=== PATIENT | male | born 1990 | race Asian ===

== ENCOUNTER → 2017-09-16 | Day surgery (SDC) | payer MEDICAID, OTHER ==
[~2017-09-16] MED LIST: DIAZEPAM 5 MG TABLET ONE
--- NOTE | 2017-09-16 14:57 | RADIOLOGY REPORT (SQ) ---
EXAM DESCRIPTION: ARTHRO SHOULDER; FLUORO/NEEDLE PLACEMENT COMPLETED DATE/TIME: 09/16/2017 1:53 pm REASON FOR STUDY: L SHOULDER PAIN COMPARISON: None. FLUOROSCOPY TIME: 13 seconds 2 digital radiographic images saved to PACS. LIMITATIONS: None. PROCEDURE: Procedure, risks, benefits and alternatives explained to patient who then gave written co nsent. The posterior left shoulder was marked and a time out was called for correct procedure verific ation. Posterior entry site marked using fluoroscopic guidance. Shoulder prepped and draped using s terile technique. Local anesthesia achieved using 8 mL of 1% lidocaine injection. 22 gauge spinal n eedle introduced into the joint space under direct fluoroscopic visualization. Non-ionic contrast ins tilled to confirm intra-articular position. Dilute gadolinium solution then injected. Needle removed and entry site covered with sterile bandage. No immediate complications noted. TECHNIQUE: Digital images acquired during fluoroscopy and stored on PACS. Patient immediately take n to the MR suite for additional imaging. INJECTION LOCATION: Posterior left glenohumeral joint CONTRAST TYPE AND AMOUNT: 1 mL of Isovue-300 was injected to confirm intra-articular needle placement followed by 12 mL of dilute gadolinium for MR arthrogram IMPRESSION: SUCCESSFUL NEEDLE PLACEMENT AND INJECTION FOR LEFT SHOULDER MR ARTHROGRAM USING POSTERIO R APPROACH. COMMENT: Quality ID 145: Final reports for procedures using fluoroscopy that document radiation exp osure indices, or exposure time and number of fluorographic images (if radiation exposure indices are not available) TECHNICAL DOCUMENTATION: JOB ID: [id number] [employer]- All Rights Reserved Reading location - IP/workstation name: [email or web address]
--- NOTE | 2017-09-16 14:57 | RADIOLOGY REPORT (SQ) ---
EXAM DESCRIPTION: ARTHRO SHOULDER; FLUORO/NEEDLE PLACEMENT COMPLETED DATE/TIME: 09/16/2017 1:53 pm REASON FOR STUDY: L SHOULDER PAIN COMPARISON: None. FLUOROSCOPY TIME: 13 seconds 2 digital radiographic images saved to PACS. LIMITATIONS: None. PROCEDURE: Procedure, risks, benefits and alternatives explained to patient who then gave written co nsent. The posterior left shoulder was marked and a time out was called for correct procedure verific ation. Posterior entry site marked using fluoroscopic guidance. Shoulder prepped and draped using s terile technique. Local anesthesia achieved using 8 mL of 1% lidocaine injection. 22 gauge spinal n eedle introduced into the joint space under direct fluoroscopic visualization. Non-ionic contrast ins tilled to confirm intra-articular position. Dilute gadolinium solution then injected. Needle removed and entry site covered with sterile bandage. No immediate complications noted. TECHNIQUE: Digital images acquired during fluoroscopy and stored on PACS. Patient immediately take n to the MR suite for additional imaging. INJECTION LOCATION: Posterior left glenohumeral joint CONTRAST TYPE AND AMOUNT: 1 mL of Isovue-300 was injected to confirm intra-articular needle placement followed by 12 mL of dilute gadolinium for MR arthrogram IMPRESSION: SUCCESSFUL NEEDLE PLACEMENT AND INJECTION FOR LEFT SHOULDER MR ARTHROGRAM USING POSTERIO R APPROACH. COMMENT: Quality ID 145: Final reports for procedures using fluoroscopy that document radiation exp osure indices, or exposure time and number of fluorographic images (if radiation exposure indices are not available) TECHNICAL DOCUMENTATION: JOB ID: [id number] [employer]- All Rights Reserved Reading location - IP/workstation name: [email or web address]
--- NOTE | 2017-09-16 15:08 | RADIOLOGY REPORT (SQ) ---
EXAM DESCRIPTION: MRI LT UPPER JOINT WITH COMPLETED DATE/TIME: 09/16/2017 2:40 pm REASON FOR STUDY: L SHOULDER PAIN left shoulder stiffness decreased range of motion, clicking, grin ding and popping COMPARISON: Arthrogram earlier today TECHNIQUE: Left shoulder images acquired and stored on PACS. Multiplanar imaging to include fat sens itive sequences such as T1, water sensitive sequences such as FST2/STIR, cartilage sensitive sequence s such as FSPD/gradient-echo sequences. LIMITATIONS: None. FINDINGS: BONE MARROW AND CORTEX: No worrisome bone lesions or marrow replacement. No occult fractur es. JOINT OR BURSAL EFFUSION: No leakage of intra-articular contrast into the subacromial/ subdeltoid bur sa. GLENO-HUMERAL ARTICULATION: Normal articulation. No subluxation. No cystic change. No osteophytes or cartilage loss. ACROMION AND AC JOINT: Type 2 acromion. No down-sloping or distal spur. Sub-acromial space maintain ed. No significant AC joint arthropathy. ROTATOR CUFF AND INTERVAL: Minimal tendinopathy in the distal supra and infraspinatus tendons, at the insertion on the greater tuberosity best shown on coronal images 8-11. Subscapularis is intact. There is a small rotator interval tear. No rotator interval thickening to suggest adhesive capsulitis . LABRUM AND BICEPS LABRAL COMPLEX: Intra-articular long head biceps tendon is high in signal from te ndinopathy. Superior labrum is intact. No paralabral cysts. REMAINDER OF LABRUM AND IGHL : No gross tear or paralabral cyst formation. Labral evaluation is less than optimal without joint distention. No thickening of IGHL to suggest adhesive capsulitis. PERIARTICULAR AND ADJACENT SOFT TISSUES: No masses or abnormal nodes. OTHER: No other significant finding. IMPRESSION: Long head biceps tendinopathy with rotator interval tear. Minimal tendinopathy in the d istal supra and infraspinatus tendon TECHNICAL DOCUMENTATION: JOB ID: [id number] [employer]- All Rights Reserved Reading location - IP/workstation name: ON LICENSE OF [facility]
== END ==
LOC: RAD 12:48
PROVIDERS: ATTEND Clinical Nurse Specialist Adult Health
PROC: BP09ZZZ Plain Radiography of Left Shoulder (ICD-10-PCS; principal; 2017-09-16)
DX: M25.512 Pain in left shoulder (principal)
CPT/HCPCS: 73222; 73040; 77002; A9576

== ENCOUNTER → 2017-09-18 | Day surgery (SDC) | payer OTHER ==
--- NOTE | 2017-09-18 13:34 | RADIOLOGY REPORT (SQ) ---
EXAM DESCRIPTION: ARTHRO SHOULDER; FLUORO/NEEDLE PLACEMENT COMPLETED DATE/TIME: 09/18/2017 1:22 pm REASON FOR STUDY: R SHOULDER PAIN COMPARISON: None. FLUOROSCOPY TIME: 14 seconds 1 images saved to PACS. LIMITATIONS: None. PROCEDURE: Procedure, risks, benefits and alternatives explained to patient who then gave written co nsent. The posterior right shoulder was marked and a time out was called for correct procedure verifi cation. Posterior entry site marked using fluoroscopic guidance. Shoulder prepped and draped using sterile technique. Local anesthesia achieved using 6 mL of 1% lidocaine injection. 22 gauge spinal needle introduced into the joint space under direct fluoroscopic visualization. Non-ionic contrast in stilled to confirm intra-articular position. Dilute gadolinium solution then injected. Needle remove d and entry site covered with sterile bandage. No immediate complications noted. TECHNIQUE: Digital images acquired during fluoroscopy and stored on PACS. Patient immediately take n to the MR suite for additional imaging. INJECTION LOCATION: Posterior right glenohumeral joint CONTRAST TYPE AND AMOUNT: 1 mL of Isovue-300 was injected to confirm intra-articular needle placement followed by injection of 12 mL of Prohance/Saline mixture. IMPRESSION: SUCCESSFUL NEEDLE PLACEMENT AND INJECTION FOR RIGHT SHOULDER MR ARTHROGRAM USING POSTERI OR APPROACH. COMMENT: Quality ID 145: Final reports for procedures using fluoroscopy that document radiation exp osure indices, or exposure time and number of fluorographic images (if radiation exposure indices are not available) TECHNICAL DOCUMENTATION: JOB ID: [id number] [employer]- All Rights Reserved Reading location - IP/workstation name: [email or web address]
--- NOTE | 2017-09-18 13:34 | RADIOLOGY REPORT (SQ) ---
EXAM DESCRIPTION: ARTHRO SHOULDER; FLUORO/NEEDLE PLACEMENT COMPLETED DATE/TIME: 09/18/2017 1:22 pm REASON FOR STUDY: R SHOULDER PAIN COMPARISON: None. FLUOROSCOPY TIME: 14 seconds 1 images saved to PACS. LIMITATIONS: None. PROCEDURE: Procedure, risks, benefits and alternatives explained to patient who then gave written co nsent. The posterior right shoulder was marked and a time out was called for correct procedure verifi cation. Posterior entry site marked using fluoroscopic guidance. Shoulder prepped and draped using sterile technique. Local anesthesia achieved using 6 mL of 1% lidocaine injection. 22 gauge spinal needle introduced into the joint space under direct fluoroscopic visualization. Non-ionic contrast in stilled to confirm intra-articular position. Dilute gadolinium solution then injected. Needle remove d and entry site covered with sterile bandage. No immediate complications noted. TECHNIQUE: Digital images acquired during fluoroscopy and stored on PACS. Patient immediately take n to the MR suite for additional imaging. INJECTION LOCATION: Posterior right glenohumeral joint CONTRAST TYPE AND AMOUNT: 1 mL of Isovue-300 was injected to confirm intra-articular needle placement followed by injection of 12 mL of Prohance/Saline mixture. IMPRESSION: SUCCESSFUL NEEDLE PLACEMENT AND INJECTION FOR RIGHT SHOULDER MR ARTHROGRAM USING POSTERI OR APPROACH. COMMENT: Quality ID 145: Final reports for procedures using fluoroscopy that document radiation exp osure indices, or exposure time and number of fluorographic images (if radiation exposure indices are not available) TECHNICAL DOCUMENTATION: JOB ID: [id number] [employer]- All Rights Reserved Reading location - IP/workstation name: [email or web address]
--- NOTE | 2017-09-18 14:35 | RADIOLOGY REPORT (SQ) ---
EXAM DESCRIPTION: MRI RT UPPER JOINT WITH COMPLETED DATE/TIME: 09/18/2017 2:03 pm REASON FOR STUDY: R SHOULDER PAIN COMPARISON: None. TECHNIQUE: Right shoulder images acquired and stored on PACS. Oblique coronal, oblique sagittal, and axial imaging to include fat sensitive sequences as T1, water sensitive sequences as FST2/STIR, and contrast sensitive sequences as FST1. LIMITATIONS: None. FINDINGS: JOINT DISTENTION: Adequate. No loose bodies. BONE MARROW AND CORTEX: Normal. AC JOINT: No subacromial narrowing. No AC joint widening or bulky overgrowth. GLENOHUMERAL JOINT: No subluxation or dislocation. No focal chondral lesions. ROTATOR CUFF: Focal irregular perforation through the distal supraspinatus near insertion. Contrast extravasates into the subdeltoid bursa. LABRUM AND BICEPS LABRAL COMPLEX: Subchondral linear irregularity related to previous SLAP repair. O verlying this area, slightly irregular contrast undercuts the labrum, worrisome for subtle recurrent type 2 tear the biceps tendon is intact. INFERIOR LABRAL COMPLEX: Intact without tear. ADJACENT SOFT TISSUES: No regional mass or axillary adenopathy. OTHER: No other significant finding. IMPRESSION: 1. Focal slightly irregular perforation of the distal supraspinatus allowing contrast ex travasation outside the confines of the joint. A significant gap in the cuff is not otherwise demons trated. 2. Status post previous superior labral repair. Very focal irregular undercutting of the an chor here suggests recurrent tear. TECHNICAL DOCUMENTATION: JOB ID: [id number] [employer]- All Rights Reserved Reading location - IP/workstation name: [email or web address]
== END ==
LOC: RAD 12:44
PROVIDERS: ATTEND Clinical Nurse Specialist Adult Health
PROC: BP08ZZZ Plain Radiography of Right Shoulder (ICD-10-PCS; principal; 2017-09-18)
DX: M25.511 Pain in right shoulder (principal)
CPT/HCPCS: 73222; 73040; 77002; A9576

== ENCOUNTER 2017-09-20 22:53 | Emergency (ER) | payer OTHER ==
[2017-09-20] MEDS ORDERED: KETOROLAC TROMETHAMINE INJ/PF 30 MG/1 ML SDV IM ONE (23:42)
[2017-09-20] MEDS ORDERED: HYDROMORPHONE HCL INJ/PF 2 MG/ML AMPULE IM ONE (23:42)
--- NOTE | 2017-09-20 23:50 | ER Document Report ---
ED General - General Chief Complaint: Back Pain Stated Complaint: BACK PAIN Time Seen by Provider: 09/20/17 23:34 Notes: Patient is a 26-year-old male who presents with complaint of chronic back pain. Patient says he has a history of pain in his back from his . Is now retired . He says whenever he gets the pain usually shoots up and down the spine. He has some tingling sensation into his feet and legs. Patient says he was mowing the yard yesterday and now has noticed the pain into his back. Says it has become more stiff and more painful today. No loss of bowel control. No urinary retention. Patient is able to walk back and forth to the bathroom without any difficulty. No other complaints at this time. No recent fevers. No recent infections. Patient says he has not had an MRI of his back since he was in the several years ago. TRAVEL OUTSIDE OF THE [place] IN LAST 30 DAYS: No - Related Data Allergies/Adverse Reactions: No Known Allergies Allergy (Verified 09/21/17 00:57) Past Medical History - Social History Smoking Status: Current Every Day Smoker Chew tobacco use (# tins/day): No Frequency of alcohol use: Occasional Drug Abuse: None Family History: Reviewed & Not Pertinent Patient has suicidal ideation: No Patient has homicidal ideation: No Neurological Medical History: Reports: Hx Migraine Renal/ Medical History: Denies: Hx Peritoneal Dialysis - Immunizations Immunizations up to date: Yes Hx Diphtheria, Pertussis, Tetanus Vaccination: Yes Review of Systems - Review of Systems Notes: My Normal Review Basic REVIEW OF SYSTEMS: CONSTITUTIONAL : Denies fever, chills, or sweats. Denies recent illness. EENT: Denies eye, ear, throat, or mouth pain or symptoms. Denies nasal or sinus congestion. RESPIRATORY: Denies cough, cold, or chest congestion. Denies shortness of breath, difficulty breathing, or wheezing. GASTROINTESTINAL: Denies abdominal pain. Denies nausea, vomiting, or diarrhea. MUSCULOSKELETAL: Back pain SKIN: Denies rash or skin lesions. NEUROLOGICAL: Denies altered mental status or loss of consciousness. Denies headache. Denies weakness or paralysis or loss of use of either side. Denies problems with gait or speech. mild tingling into both feet. ALL OTHER SYSTEMS REVIEWED AND NEGATIVE. Physical Exam - Vital signs Vitals: Temp Pulse Resp BP Pulse Ox 97.8 F 61 16 132/97 H 98 09/20/17 23:04 09/20/17 23:04 09/20/17 23:04 09/20/17 23:04 09/20/17 23:04 - Notes Notes: General Appearance: Well nourished, alert, cooperative, no acute distress, moderate obvious discomfort. Vitals: reviewed, See vital signs table. Eyes: PERRL, EOMI, Conjuctiva clear Back: Some reproducible pain to palpation along the lumbar and thoracic spine and midline. Bilateral paraspinal musculature tenderness. Extremities: strength 5/5 in all extremities, good pulses in all extremities, no swelling or tenderness in the extremities, no edema. Skin: warm, dry, appropriate color, no rash Neuro: speech clear, oriented x 3, normal affect, responds appropriately to questions. Patient has good strength with plantar dorsiflexion against resistance. Patellar reflexes are 2 out of 4 and equal bilaterally. Good distal sensation into the distal lower extremities. Patient is able stand and walk without any foot drop and without any significant difficulty. Course - Re-evaluation Re-evalutation: 09/21/17 01:31 Patient presents with back pain that worsened while he was mowing the yard. His pain does not seem to be really improved with anything I give him here yet he does not seem to be in a lot of pain on exam. Is able stand and walk without any difficulty. His bowel function is been completely normal. He is able to urinate and give urine samples here without any difficulty. He denies any urinary retention. He admits to some mild tingling in his legs however he has very good strength with plantar dorsiflexion of his feet and he has normal patellar reflexes. Has no signs of cauda equina syndrome at this time. I explained all this to the patient in depth. Patient himself admits he has a history of some chronic back pain but admits that this is a bit different that it goes up his entire spine worse his previous pain was mainly just in his lower back. At this time he does not show any signs of spinal cord impingement requiring emergent surgical intervention and therefore I do not feel a need to transfer him for an MRI. I did talk to patient length about the signs and symptoms that would require an emergent MRI and surgical intervention which include loss of bowel control, urinary retention, leg weakness, leg numbness, or difficulty relating. Patient is understanding of this and agrees to return to the ER immediately if he has any the signs or symptoms. He agrees to follow- up with his doctor on Saturday and be reevaluated for potential outpatient MRI. He is not an IV drug abuser and he has no recent fevers or any recent symptoms that would cause concern for infection. Patient agrees with plan will be discharged home. Dictation of this chart was performed using voice recognition software; therefore, there may be some unintended grammatical errors. - Vital Signs Vital signs: Temp Pulse Resp BP Pulse Ox 97.8 F 61 16 132/97 H 98 09/20/17 23:04 09/20/17 23:04 09/20/17 23:04 09/20/17 23:04 09/20/17 23:04 Discharge - Discharge Clinical Impression: Back pain Qualifiers: Back pain location: back pain in unspecified location Chronicity: acute Back pain laterality: midline Qualified Code(s): M54.9 - Dorsalgia, unspecified Condition: Good Disposition: HOME, SELF-CARE Instructions: Oral Narcotic Medication ([facility]) Additional Instructions: Please take the medications as prescribed. Please continue to take the meds prescribed by your doctor. Please return to the ER immediately if you have worsening parra, fevers, leg weakness, leg numbness, loss of bowel function, difficulty urinating, or if you feel that you are worsening in any way. Please follow up with your doctor on Saturday. If you continue to have symptoms you may require an outpatient MRI of your back. Please take the [place] more at night to help manage the pain so you can get some rest. Prescriptions: Baclofen [Baclofen 20 Mg Tablet] 20 mg PO BID PRN #15 tablet PRN Reason: Pain Scale Of 4
[2017-09-21] MEDS ORDERED: BACLOFEN 20 MG TABLET PO ONE (00:29)
[2017-09-21] MEDS ORDERED: HYDROCODONE/ACETAMINOPHEN 5-325 MG (6 TAB/ER DISP) PO PRN (01:28)
[2017-09-21 01:39] VITALS: BP 122/73
== END 2017-09-21 01:38 | disposition home or self-care (01) ==
LOC: ER 22:53
DX: G89.29 Other chronic pain (principal); M54.9 Dorsalgia, unspecified; R20.2 Paresthesia of skin; F17.200 Nicotine dependence, unspecified, uncomplicated
CPT/HCPCS: 99283; 96372; J1885; J1170; J3490

== ENCOUNTER 2017-10-13 16:47 | Emergency (ER) | payer OTHER ==
[2017-10-13] MEDS ORDERED: PROCHLORPERAZINE MALEATE 10 MG TABLET PO ONE (17:13)
[2017-10-13] MEDS ORDERED: NAPROXEN 250 MG TABLET PO ONE (17:13)
[2017-10-13] MEDS ORDERED: DIPHENHYDRAMINE HCL 25 MG CAPSULE PO ONE (17:13)
--- NOTE | 2017-10-13 17:14 | ER Document Report ---
ED Medical Screen (RME) - General Chief Complaint: Headache >24 hrs old Stated Complaint: HEADACHE Time Seen by Provider: 10/13/17 17:06 Notes: 26-year-old male patient complaining migraine headache for couple of days. He gets headaches off and on. He normally takes butalbital but it is not helping. His occipital headache with light sensitivity and nausea without vomiting. I have greeted and performed a rapid initial assessment of this patient. A comprehensive ED assessment and evaluation of the patient, analysis of test results and completion of the medical decision making process will be conducted by additional ED providers. TRAVEL OUTSIDE OF THE [place] IN LAST 30 DAYS: No - Related Data Allergies/Adverse Reactions: No Known Allergies Allergy (Verified 10/13/17 16:51) Home Medications: ambien, fish oil, mag ox, protonix, vit d3, voltaren, zoloft, acet/butal. Past Medical History - Social History Chew tobacco use (# tins/day): No Frequency of alcohol use: Occasional Drug Abuse: None Neurological Medical History: Reports: Hx Migraine Renal/ Medical History: Denies: Hx Peritoneal Dialysis - Immunizations Immunizations up to date: Yes Hx Diphtheria, Pertussis, Tetanus Vaccination: Yes Physical Exam - Vital signs Vitals: Temp Pulse Resp BP Pulse Ox 98.1 F 92 18 121/84 97 10/13/17 16:57 10/13/17 16:57 10/13/17 16:57 10/13/17 16:57 10/13/17 16:57 Course - Vital Signs Vital signs: Temp Pulse Resp BP Pulse Ox 98.1 F 92 18 121/84 97 10/13/17 16:57 10/13/17 16:57 10/13/17 16:57 10/13/17 16:57 10/13/17 16:57
[2017-10-13] MEDS ORDERED: HYDROCODONE/ACETAMINOPHEN 5-325 MG (6 TAB/ER DISP) PO PRN (18:38)
--- NOTE | 2017-10-13 18:38 | ER Document Report ---
ED Headache - General Chief Complaint: Headache >24 hrs old Stated Complaint: HEADACHE Time Seen by Provider: 10/13/17 17:06 Mode of Arrival: Ambulatory Information source: Patient, [facility] Records Notes: This 26-year-old male patient comes emergency room complaining of migraine headaches for the last couple of days. He does get headaches off and on. He normally takes Fioricet but it is not helping. He describes headache on the left back of his head and left temporal area of the head. There is light sensitivity and nausea without vomiting. [facility] his [facility] headaches. He takes baclofen for his chronic back pain. TRAVEL OUTSIDE OF THE [place] IN LAST 30 DAYS: No - Related Data Allergies/Adverse Reactions: No Known Allergies Allergy (Verified 10/13/17 16:51) Home Medications: ambien, fish oil, mag ox, protonix, vit d3, voltaren, zoloft, acet/butal. Past Medical History - General Information source: Patient, [facility] Records - Social History Smoking Status: Former Smoker Cigarette use (# per day): No Chew tobacco use (# tins/day): No Frequency of alcohol use: Occasional Drug Abuse: None Occupation: Medically retired from the Lives with: Spouse/Significant other Family History: Reviewed & Not Pertinent Patient has suicidal ideation: No Patient has homicidal ideation: No Neurological Medical History: Reports: Hx Migraine Surgical Hx: Negative - Immunizations Immunizations up to date: Yes Hx Diphtheria, Pertussis, Tetanus Vaccination: Yes Review of Systems - Review of Systems Constitutional: No symptoms reported EENT: No symptoms reported Cardiovascular: No symptoms reported Respiratory: No symptoms reported Gastrointestinal: No symptoms reported Genitourinary: No symptoms reported Musculoskeletal: Back pain Skin: No symptoms reported Hematologic/Lymphatic: No symptoms reported Neurological/Psychological: Headaches Physical Exam - Vital signs Vitals: Temp Pulse Resp BP Pulse Ox 98.1 F 92 18 121/84 97 10/13/17 16:57 10/13/17 16:57 10/13/17 16:57 10/13/17 16:57 10/13/17 16:57 Interpretation: Normal - General General appearance: Appears well, Alert In distress: None - HEENT Head: Normocephalic, Atraumatic, Tenderness - He is very tender to palpate the left temporal muscles and the left posterior cervical neck muscles Eyes: Normal Pupils: PERRL Neck: Supple, Other - Very tender to palpate the left posterior cervical neck muscles - Respiratory Respiratory status: No respiratory distress - Cardiovascular Rhythm: Regular - Abdominal Inspection: Normal - Back Back: Tender - Extremities General upper extremity: Normal inspection General lower extremity: Normal inspection - Neurological Neuro grossly intact: Yes - Psychological Associated symptoms: Normal affect, Normal mood - Skin Skin Temperature: Warm Skin Moisture: Dry Skin Color: Normal Course - Re-evaluation Re-evalutation: 10/13/17 18:58 Patient was given Naprosyn 500 mg, Compazine 10 mg, Benadryl 25 mg. He was reevaluated 1 hour later and states there is absolutely no difference in his headache. Examination done at that point showed this to be clearly a muscle tension type headache. All of this was explained to the patient why the exquisitely tender muscles palpated outside the skull could not be related to a migraine headache, as that is a vascular headache involving blood vessels on the surface of the brain. - Vital Signs Vital signs: Temp Pulse Resp BP Pulse Ox 97.5 F 87 16 119/78 98 10/13/17 18:50 10/13/17 18:50 10/13/17 18:50 10/13/17 18:50 10/13/17 18:50 Discharge - Discharge Clinical Impression: Muscle tension headache Condition: Stable Disposition: HOME, SELF-CARE Additional Instructions: Tension Headache: Your problem has been diagnosed as muscle tension headache. This very common type of headache occurs because of tightness in the muscles of the head and neck. The cause may be neck or jaw joint problems, but most commonly the cause is emotional stress. The headache may last hours or days. The treatment of uncomplicated tension headaches is rest and pain medication. Often, the newer antiinflammatory pain medications are prescribed, as these also decrease the irritability of the painful tissues. Muscle relaxers , cold packs, or warm packs are sometimes helpful. Anti-anxiety medication or narcotics are sometimes needed temporarily, but are best avoided in the long run. Your doctor has evaluated your headache problem, and finds no evidence of a serious health problem as a cause for the headache. If your headache becomes more severe, or if new symptoms develop (such as fever, stiff neck, vomiting, or decreasing alertness) you should be re-examined by the physician. Take medications as dispensed this evening for your headache. Continue your regular medications. Try ice packs and/or moist heat to the painful muscles on your temporal scalp and posterior neck regions. Rest and a cool quiet area. Follow-up with your doctor if not improving. RETURN TO THE EMERGENCY ROOM IF ANY NEW OR WORSENING SYMPTOMS.
[2017-10-13 18:52] VITALS: BP 119/78
== END 2017-10-13 18:52 | disposition home or self-care (01) ==
LOC: ER 16:47
DX: G44.209 Tension-type headache, unspecified, not intractable (principal); H53.149 Visual discomfort, unspecified; R11.0 Nausea; M54.9 Dorsalgia, unspecified; G89.29 Other chronic pain; Z79.899 Other long term (current) drug therapy
CPT/HCPCS: 99283; S0183

== ENCOUNTER 2017-11-23 22:52 | Emergency (ER) | payer OTHER, MEDICAID ==
[2017-11-24] MEDS ORDERED: NORMAL SALINE 1000 ML 1,000 ML IV ONE (00:43)
[2017-11-24] MEDS ORDERED: METOCLOPRAMIDE HCL INJ/PF 10 MG/2 ML SDV IV ONE (00:43)
[2017-11-24] MEDS ORDERED: DIPHENHYDRAMINE HCL 50 MG/ML VIAL IV ONE (01:18)
[2017-11-24] MEDS ORDERED: DEXAMETHASONE SOD PHOS INJ 10 MG/1 ML VIAL IV ONE (01:18)
--- NOTE | 2017-11-24 01:19 | ER Document Report ---
ED General - General Chief Complaint: Nausea/Vomiting Stated Complaint: VOMITING Time Seen by Provider: 11/24/17 00:43 Notes: The patient is a 26-year-old male with a history of migraine headaches who presents with 1 of his typical migraines with associated nausea and vomiting. The patient reports that approximately 3 or 4 hours prior to arrival he began to develop a dull, throbbing, bitemporal headache. She notes associated photophobia and phonophobia as well as nausea and vomiting. He reports that this feels very similar to prior migraine headaches that he has had in the past. He notes that the pain has been progressively worsening since onset. He did take sumatriptan at home without any improvement. He states that shortly after eating a [employer] sandwich he did develop diffuse urticarial lesions but did not eat anything new or different than he usually does. He denies any shortness of breath, difficulty swallowing, or syncope. No history of prior allergic reactions. He has not seen his primary doctor about the above complaints. TRAVEL OUTSIDE OF THE [place] IN LAST 30 DAYS: No - Related Data Allergies/Adverse Reactions: No Known Allergies Allergy (Verified 10/13/17 16:51) Past Medical History - General Information source: Patient - Social History Smoking Status: Never Smoker Frequency of alcohol use: None Drug Abuse: None Lives with: Spouse/Significant other Family History: Reviewed & Not Pertinent Neurological Medical History: Reports: Hx Migraine Renal/ Medical History: Denies: Hx Peritoneal Dialysis - Immunizations Immunizations up to date: Yes Hx Diphtheria, Pertussis, Tetanus Vaccination: Yes Review of Systems - Review of Systems Notes: Constitutional: Negative for fever. HENT: Negative for sore throat. Eyes: Negative for visual changes. Cardiovascular: Negative for chest pain. Respiratory: Negative for shortness of breath. Gastrointestinal: Positive for nausea and vomiting Genitourinary: Negative for dysuria. Musculoskeletal: Negative for back pain. Skin: Positive for urticaria Neurological: Positive for headache 10 point ROS negative except as marked above and in HPI. Physical Exam - Vital signs Vitals: Temp Pulse Resp BP Pulse Ox 98.1 F 84 16 117/84 95 11/23/17 23:23 11/23/17 23:23 11/23/17 23:23 11/23/17 23:23 11/23/17 23:23 Interpretation: Normal Notes: PHYSICAL EXAMINATION: GENERAL: Appears uncomfortable but no acute distress HEAD: Atraumatic, normocephalic. EYES: Pupils equal round and reactive to light, extraocular movements intact, sclera anicteric, conjunctiva are normal. ENT: nares patent, oropharynx clear without exudates. Moist mucous membranes. NECK: Normal range of motion, supple without lymphadenopathy LUNGS: Breath sounds clear to auscultation bilaterally and equal. No wheezes rales or rhonchi. HEART: Regular rate and rhythm without murmurs ABDOMEN: Soft, nontender, normoactive bowel sounds. No guarding, no rebound. No masses appreciated. EXTREMITIES: Normal range of motion, no pitting or edema. No cyanosis. NEUROLOGICAL: Face symmetric. Tongue protrudes midline. Extraocular motions intact. Pupils are 2 mm and equally reactive. Normal speech, normal gait. 5 out of 5 strength in both the distal and proximal upper and lower extremities bilaterally. Sensation is grossly intact throughout. Finger to nose testing normal. Pronator drift normal. PSYCH: Normal mood, normal affect. SKIN: Warm, Dry, normal turgor, scattered urticarial lesions over the chest, abdomen, bilateral upper extremities and back Course - Re-evaluation Re-evalutation: 11/24/17 01:18 Presentation of a headache that appears to be most consistent with tension versus migrainous type headache. Headache was not maximal in onset, patient has no focal neurologic deficits, no nuchal rigidity, vital signs within normal limits, no papilledema, and patient is overall well in appearance. Based on clinical history and examination I do not suspect an acute subarachnoid hemorrhage, dural venous sinus thrombosis, acute meningitis, or intercranial mass. Given my low clinical suspicion for any acute life-threatening etiology, I do not feel advanced neuro imaging or laboratory testing is indicated at this time. Patient did also develop diffuse urticarial lesions after eating a sub-. It appears that he is having an allergic reaction to something that was contained in the sandwich. He will receive dexamethasone and Benadryl in addition to metoclopramide for his headache as well as the hives. 11/24/17 02:29 Patient has had significant improvement of his headache, no longer having nausea or vomiting. He has tolerated oral intake. Urticaria has improved. At this time will discharge with return precautions and follow-up recommendations. Verbal discharge instructions given a the bedside and opportunity for questions given. Medication warnings reviewed. Patient is in agreement with this plan and has verbalized understanding of return precautions and the need for primary care follow-up in the next 24-72 hours. - Vital Signs Vital signs: Temp Pulse Resp BP Pulse Ox 98.1 F 84 16 117/84 95 11/23/17 23:23 11/23/17 23:23 11/23/17 23:23 11/23/17 23:23 11/23/17 23:23 - Laboratory Result Diagrams: 11/24/17 01:09 11/24/17 01:09 Laboratory results interpreted by me: 11/24/17 01:09 WBC 14.3 H RBC 5.74 H Lymphocytes % 12.9 L Absolute Neutrophils 11.0 H Discharge - Discharge Clinical Impression: Migraine headache Qualifiers: Migraine type: unspecified Status migrainosus presence: with status migrainosus Intractability: not intractable Qualified Code(s): G43.901 - Migraine, unspecified, not intractable, with status migrainosus Vomiting Qualifiers: Vomiting type: unspecified Vomiting Intractability: non-intractable Nausea presence: with nausea Qualified Code(s): R11.2 - Nausea with vomiting, unspecified Allergic reaction Qualifiers: Encounter type: initial encounter Qualified Code(s): T78.40XA - Allergy, unspecified, initial encounter Condition: Good Disposition: HOME, SELF-CARE Additional Instructions: You were seen today for a migraine headache. Please follow-up with your primary care doctor regarding today's ED visit. Return to emergency department immediately if you develop a headache that gets to its maximum severity within 20 minutes of onset, you pass out, you develop weakness, numbness, changes in your vision, become unable to keep any fluids down for more than 12 hours, or develop a fever greater than 100.4 degrees Fahrenheit. You were seen today for hives. This can be either allergic, autoimmune, or environmental in origin. You can continue to take cetirizine 10mg up to 3 times daily as needed for itching. IF YOU DEVELOP DIFFICULTY BREATHING, SPREADING OF HIVES, VOMITING, LIGHTHEADEDNESS, IMMEDIATELY AND CALL 911. Please follow-up with your primary care physician in the next 1-2 days.
[2017-11-24 01:30] LABS: ABSOLUTE BASOPHILS # (AUTO) 0.1 10^3/uL (0.0-0.2); ABSOLUTE EOSINOPHILS # (AUTO) 0.2 10^3/uL (0.0-0.6); ABSOLUTE LYMPHOCYTES (AUTO) 1.8 10^3/uL (0.5-4.7); ABSOLUTE MONOCYTES (AUTO) 1.3 10^3/uL (0.1-1.4); BASOPHILS % (AUTO) 0.4 % (0-2); EOSINOPHILS % (AUTO) 1.2 % (0-6); HEMATOCRIT 47.8 % (37.9-51.0); HEMOGLOBIN 16.3 g/dL (13.5-17.0); LYMPHOCYTES % (AUTO) 12.9 % (13-45); MEAN CORPUSCULAR HEMOGLOBIN 28.4 pg (27.0-33.4); MEAN CORPUSCULAR HGB CONC 34.1 g/dL (32.0-36.0); MEAN CORPUSCULAR VOLUME 83 fl (80-97); MONOCYTES % (AUTO) 8.9 % (3-13); PLATELET COUNT 261 10^3/uL (150-450); RED BLOOD COUNT 5.74 10^6/uL (4.35-5.55); RED CELL DISTRIBUTION WIDTH 12.4 % (11.5-14.0); SEGMENTED NEUTROPHILS % (AUTO) 76.6 % (42-78); TOTAL CELLS COUNTED % (AUTO) 100 %; WHITE BLOOD COUNT 14.3 10^3/uL (4.0-10.5)
[2017-11-24] MEDS ORDERED: HALOPERIDOL LACTATE INJ 5 MG/1 ML VIAL IV ONE (01:51)
[2017-11-24 04:01] VITALS: BP 117/73
== END 2017-11-24 03:09 | disposition home or self-care (01) ==
LOC: ER 22:52
DX: G43.901 Migraine, unspecified, not intractable, with status migrainosus (principal); R11.2 Nausea with vomiting, unspecified; H53.149 Visual discomfort, unspecified; L50.0 Allergic urticaria
CPT/HCPCS: 99284; 96361; 96374; 96375; 36415; 85025; J1200; J1630; J2765; J7030; J1100

== ENCOUNTER 2017-12-12 05:17 | Day surgery (SDC) | payer OTHER, MEDICAID ==
[2017-12-05 10:24] LABS: APPEARANCE,URINE CLEAR; BILIRUBIN,URINE NEGATIVE (NEGATIVE); COLOR,URINE YELLOW; GLUCOSE, URINE NEGATIVE (NEGATIVE); KETONES,URINE NEGATIVE (NEGATIVE); LEUKOCYTE ESTERASE,URINE NEGATIVE (NEGATIVE); NITRITE,URINE NEGATIVE (NEGATIVE); PROTEIN,URINE NEGATIVE (NEGATIVE); URINE SPECIFIC GRAVITY 1.016; UROBILINOGEN,URINE NEGATIVE mg/dL (<2.0)
[2017-12-05 10:25] LABS: HEMATOCRIT 45.5 % (37.9-51.0); MEAN CORPUSCULAR HEMOGLOBIN 29.3 pg (27.0-33.4); MEAN CORPUSCULAR HGB CONC 35.2 g/dL (32.0-36.0); MEAN CORPUSCULAR VOLUME 83 fl (80-97); PLATELET COUNT 234 10^3/uL (150-450); RED BLOOD COUNT 5.47 10^6/uL (4.35-5.55); RED CELL DISTRIBUTION WIDTH 12.7 % (11.5-14.0); WHITE BLOOD COUNT 4.9 10^3/uL (4.0-10.5)
[2017-12-05 10:44] LABS: ANION GAP 12 (5-19); BLOOD UREA NITROGEN 13 mg/dL (7-20); CALCIUM 9.7 mg/dL (8.4-10.2); CARBON DIOXIDE 29 mmol/L (22-30); CHLORIDE 104 mmol/L (98-107); GLUCOSE 103 mg/dL (75-110); POTASSIUM 4.7 mmol/L (3.6-5.0); SODIUM 144.5 mmol/L (137-145)
[~2017-12-12 05:17] MED LIST changes: +CEFAZOLIN 2 GM/D5W RTU 2 GM/50 ML RTUPB IV PRN; -DIAZEPAM 5 MG TABLET ONE; +LACTATED RINGERS 1000 ML IV PRN; +LIDOCAINE 0.5% INJ-PF (5 MG/ML) 50 ML SDV SUBCUT PRN
[2017-12-12] MEDS ORDERED: EPINEPHRINE INJ/PF 1 MG/1 ML AMPULE ONE (07:12)
[2017-12-12] MEDS ORDERED: BUPIVACAINE HCL 0.25 % INJ/PF (2.5 MG/1 ML) 30 ML VIAL ONE (07:12)
[2017-12-12] MEDS ORDERED: EPHEDRINE SULFATE INJ 50 MG/1 ML AMPULE ONE (07:17)
[2017-12-12] MEDS ORDERED: FENTANYL CITRATE INJ/PF 250 MCG/5 ML AMPULE ONE (07:17)
[2017-12-12] MEDS ORDERED: MIDAZOLAM 2 MG/2 ML INJ ONE (07:17)
[2017-12-12] MEDS ORDERED: ACETAMINOPHEN 1,000 MG/100 ML RTUPB IV ONE (07:18)
[2017-12-12] MEDS ORDERED: PROPOFOL INJ 200 MG/20 ML VIAL IV ONE (07:18)
[2017-12-12] MEDS ORDERED: HYDROMORPHONE HCL INJ/PF 2 MG/ML AMPULE ONE (07:18)
[2017-12-12] MEDS ORDERED: DIPHENHYDRAMINE HCL 50 MG/ML VIAL IV PRN (08:13)
[2017-12-12] MEDS ORDERED: FENTANYL CITRATE INJ/PF 100 MCG/2 ML AMPUL IV PRN ×3 (08:13)
[2017-12-12] MEDS ORDERED: PROMETHAZINE HCL INJ 25 MG/1 ML VIAL IV PRN ×2 (08:13)
[2017-12-12] MEDS ORDERED: OXYCODONE-ACETAMINOPHEN 5-325 MG TABLET PO PRN ×4 (08:13→09:37)
[2017-12-12] MEDS ORDERED: MORPHINE SULFATE 10 MG/ML INJ IV PRN (08:13)
[2017-12-12] MEDS ORDERED: MEPERIDINE HCL/PF INJ 25 MG/1 ML DISP.SYRIN IV PRN (08:13)
[2017-12-12] MEDS: MEPERIDINE HCL/PF INJ 25 MG/1 ML DISP.SYRIN ONE ×2 (09:11→09:16)
--- NOTE | 2017-12-12 09:21 | Operative Report ---
Operative Report DATE OF SURGERY: 12/12/17 PREOPERATIVE DIAGNOSIS: Right shoulder failed SLAP repair and questionable rotator cuff tear POSTOPERATIVE DIAGNOSIS: Right shoulder failed repair with intact rotator cuff. OPERATION: Right shoulder arthroscopic debridement labrum and subpectoralis biceps tenodesis SURGEON: MATA LUGO ANESTHESIA: GA TISSUE REMOVED OR ALTERED: Portion of the long head of the biceps removed COMPLICATIONS: None ESTIMATED BLOOD LOSS: 20 mL INTRAOPERATIVE FINDINGS: As above PROCEDURE: Patient received 1 g of IV Ancef. Patient then was taken to the operating room where she was induced and intubated in supine position. Patient then was secured in the beachchair position where the right shoulder was prepped and draped in a normal surgical fashion. Timeout done identifying the right shoulder as the correct site. Spinal needle was used to insert into the glenohumeral joint and I proceeded to distend the capsule with sterile saline solution. 11 blade was used to establish my posterior portal and I introduced the cannula into the glenohumeral joint. Once I got return of fluid I confirm proper placement so I inserted the camera. Under direct visualization I placed a spinal needle marked my anterior portal and used an 11 blade to establish a. I placed a purple cannula and then through the cannula was able to probe and proceed with my diagnostic scope which show pristine glenohumeral joint cartilage and intact labrum anterior, inferior and posterior. As suspected patient had a failed SLAP repair with a new tear. There was a suture that was also loose I was able to removed. To my attention to the footprint of the rotator cuff which showed to be intact with no partial tearing. At this point through the anterior portal I use arthroscopic scissors to do a tenotomy of the long head of the biceps at the attachment of the glenoid superiorly. I proceeded then to remove fluid from the shoulder joint and removed the instruments. A 1 inch incision was done just medial to the axillary fold dissection was done with Metzenbaum scissors and hemostasis was obtained with the Bovie. Able to then cut the fascia overlying the biceps and then hooked the long head of biceps with a 90 clamp. Was able then to use a fiber loop and suture 2 cm from the muscular tendinous junction and cut the remaining tendon. I used 2 Homans to reflect tissue on the side of the humerus. I used a 4 mm spade tip guidepin then to do my proximal cortex drilling into the intramedullary canal of the humerus. I fed the 2 ends of the fiber wire into the biceps tenodesis button as recommended by the manufacturing company. Pulled out the guidepin and then proceeded to insert the button into the intramedullary canal. I was able to successfully flipped the button and after releasing securing the biceps. I used a free needle the comes in the care and pass one of the FiberWire ends through the biceps one more time to further secure it. Once I since the biceps onto the humeral cortex I then proceeded to go several half hitch knots for added fixation. Instruments were removed and used bulb irrigation to wash the tissue. I proceeded to approximate the tissue with 2-0 Vicryl and close the skin with 3-0 nylon. The 2 of the portal sites were closed with 3-0 nylon as well. I placed Xeroform over the incisions and covered it with 4 x 4 dressing and ABD pads. Secured the dressing with Medipore tape. Patient's arm was placed in the sling and the patient then was placed in supine position extubated and sent to PACU in stable condition.
--- NOTE | 2017-12-12 09:26 | Discharge Summary ---
Discharge Summary (SDC) - Discharge Final Diagnosis: Right shoulder arthroscopic debridement and subpectoralis biceps tenodesis Date of Surgery: 12/12/17 Discharge Date: 12/12/17 Condition: Good Treatment or Instructions: Patient is instructed to follow up in 10-14 days. Patient instructed to remove dressing in 4 days then can shower and apply Band- Aids as needed. Patient to wear sling for comfort but okay to remove for shower and pendulum exercises. Pendulum exercises are instructed to be done 3 times a day ideally with breakfast, lunch, dinners and showers. Patient instructed to call if there is any signs of redness or drainage fevers or chills. Prescriptions: Oxycodone HCl/Acetaminophen [Percocet 5-325 mg Tablet] 1 - 2 tab PO ASDIR PRN # 30 tablet PRN Reason: Referrals: KURTIS AVENDAÑO, L[facility] OUT HELPER [Primary Care Provider] - Respiratory Treatments at Home: Deep Breathing/Coughing Discharge Activity: No Driving, No Lifting/Push/Pulling, Slowly Increase Activity, Walk Frequently Home Care Assistance: None Needed Report the Following to Your Physician Immediately: Shortness of Breath, Vomiting, Increase in Pain, Fever over 101 Degrees, Unusual Bleeding, Redness, Swelling, Warmth, Drainage-Yellow, Drainage-Morales, Drainage-Green, Drainage-Foul Smelling
[2017-12-12 11:55] VITALS: BP 136/96
[2017-12-12] MEDS ORDERED: DEXAMETHASONE SOD PHOSPHATE INJ 4 MG/1 ML VIAL ONE (15:59)
[2017-12-12] MEDS ORDERED: SUCCINYLCHOLINE CHLORIDE INJ 200 MG/10 ML VIAL ONE (15:59)
[2017-12-12] MEDS ORDERED: METOCLOPRAMIDE HCL INJ/PF 10 MG/2 ML SDV ONE (15:59)
== END 2017-12-12 11:30 | disposition home or self-care (01) ==
LOC: OROUT 05:17
PROVIDERS: ATTEND Orthopaedic Surgery
DX: M75.111 Incomplete rotator cuff tear or rupture of right shoulder, not specified as traumatic (principal); S43.431A Superior glenoid labrum lesion of right shoulder, initial encounter; X58.XXXA Exposure to other specified factors, initial encounter; Z87.820 Personal history of traumatic brain injury; Z79.899 Other long term (current) drug therapy
CPT/HCPCS: 36415; 85027; 80048; 81001; 29822; 24340; C1713; J2250; J1100; J0171; J3010; J2175; J2765; J1170; J0330; J2704; J0690; J0131; 1630; J3490

== ENCOUNTER 2019-03-24 23:48 | Emergency (ER) | payer OTHER, MEDICAID ==
--- NOTE | 2019-03-25 00:39 | ER Document Report ---
ED General - General Chief Complaint: Back Pain Stated Complaint: BACK PAIN Time Seen by Provider: 03/25/19 00:39 Primary Care Provider: LAI GRAVES MD [ASSOCIATE] - Follow up in 3-5 days (orthopedics ) MELISSA GABRIEL MD [ACTIVE STAFF] - Follow up in 3-5 days (Pain Management ) Notes: Patient is a 28-year-old male with history of chronic low back pain that presents to the emergency department for chief complaint of low back pain. Patient states he is been having a flare of his low back pain over the past few days and is gotten progressively worse, he said some tingling shoot down his legs occasionally, denies having any weakness, denies bladder or bowel incontinence, denies any urinary retention saddle anesthesias or paresthesias. He states he is currently undergoing physical therapy, but has not had any surgery for his back he states he has had injections and other sorts of treatments in the past that have not particularly helped. He is not currently seeing pain management. He states he thinks he may have strained his back and is just been worse compared to his normal baseline pain. He currently rates his pain as a 7 out of 10 describes as a dull constant aching sensation. Past Medical History: Chronic low back pain Past Surgical History: Denies any recent or pertinent surgical history Social History: Denies tobacco, alcohol or drug use. Family History: Reviewed and noncontributory for presenting illness Allergies: Reviewed, see documented allergy list. REVIEW OF SYSTEMS: Other than noted above, the 12 point review of systems was reviewed with the patient and were negative, all pertinent findings are included in the HPI. PHYSICAL EXAMINATION: Vital signs reviewed, nursing noted reviewed. GENERAL: Well-appearing, well-nourished and in no acute distress. HEAD: Atraumatic, normocephalic. EYES: Eyes appear normal, sclera anicteric, conjunctiva are normal. ENT: Moist mucous membranes. NECK: Normal range of motion, supple without lymphadenopathy LUNGS: Breath sounds clear to auscultation bilaterally and equal. No wheezes rales or rhonchi. HEART: Regular rate and rhythm without murmurs EXTREMITIES: Nontender, good range of motion, no pitting or edema. Back: Mild paraspinal tenderness bilaterally, no midline tenderness or step-off or deformity to the lumbar spine. Discomfort with range of motion particularly with flexion. Negative straight leg raising. NEUROLOGICAL: No focal neurological deficits. Moves all extremities spontaneously Motor and sensory grossly intact on exam. Deep tendon reflexes +2/4 in the Achilles and patellar tendons bilaterally and equal. Distal muscular motor strength is +5/5 bilaterally in all extremities, particularly +5/5 with dorsiflexion plantar flexion and extension of the hallucis longus tendons bilaterally. PSYCH: Normal mood, normal affect. SKIN: Warm, Dry, normal turgor, no rashes or lesions noted on exposed skin TRAVEL OUTSIDE OF THE [place] IN LAST 30 DAYS: No - Related Data Allergies/Adverse Reactions: No Known Allergies Allergy (Verified 11/26/17 16:01) Past Medical History - Social History Smoking Status: Current Every Day Smoker Chew tobacco use (# tins/day): No Frequency of alcohol use: Occasional Drug Abuse: None Family History: Reviewed & Not Pertinent Patient has suicidal ideation: No Patient has homicidal ideation: No - Past Medical History Cardiac Medical History: Denies: Hx Coronary Artery Disease, Hx Heart Attack, Hx Hypertension Pulmonary Medical History: Denies: Hx Asthma, Hx Bronchitis, Hx COPD, Hx Pneumonia Neurological Medical History: Reports: Hx Migraine. Denies: Hx Cerebrovascular Accident, Hx Seizures Renal/ Medical History: Denies: Hx Peritoneal Dialysis Musculoskeletal Medical History: Denies Hx Arthritis - Immunizations Immunizations up to date: Yes Hx Diphtheria, Pertussis, Tetanus Vaccination: Yes Physical Exam - Vital signs Vitals: Temp Pulse Resp BP Pulse Ox 98.3 F 72 16 123/87 H 97 03/24/19 23:52 03/24/19 23:52 03/24/19 23:52 03/24/19 23:52 03/24/19 23:52 Course - Re-evaluation Re-evalutation: Patient seen and examined vital signs reviewed. Patient was evaluated and treated as appropriate for the patient's presenting symptoms and complaint, with consideration of any critical or life threatening conditions that may be associated with their obtained history and exam as noted above. Patient was treated with a morphine, Robaxin and prednisone The patient was re-evaluated and was stable and improved Evaluation was most consistent with chronic low back pain, advised follow-up with pain management, given scription for muscle relaxer, [place], prednisone. Plan of care was discussed with the patient at this point, after careful consideration I feel that that patient can be discharged from the emergency department, the patient was educated treatments and reasons to return to the emergency department based on their presumed diagnosis as noted above, they were advised to followup with a primary care physician in 2-3 days. Patient was agreeable to plan of care. *Note is created using voice recognition software and may contain spelling, syntax or grammatical errors. - Vital Signs Vital signs: Temp Pulse Resp BP Pulse Ox 97.9 F 65 18 118/80 96 03/25/19 01:57 03/25/19 01:57 03/25/19 01:57 03/25/19 01:57 03/25/19 01:57 Discharge - Discharge Clinical Impression: Back pain Qualifiers: Back pain location: low back pain Chronicity: chronic Back pain laterality: bilateral Sciatica presence: without sciatica Qualified Code(s): M54.5 - Low back pain Condition: Stable Disposition: HOME, SELF-CARE Instructions: Low Back Pain ([facility]) Additional Instructions: Please follow-up with either the chronic pain management clinic, or with the spinal doctor. For further evaluation and management. Please take all medications as prescribed, do not drive while taking the [place] or the Robaxin. Prescriptions: Hydrocodone/Acetaminophen [[place] 5-325 mg Tablet] 1 tab PO Q8H PRN #15 tablet PRN Reason: back pain Prednisone 40 mg PO DAILY #16 tablet Methocarbamol [Robaxin 750 mg Tablet] 750 mg PO TID PRN #30 tablet PRN Reason: Back pain Referrals: MELISSA GABRIEL MD [ACTIVE STAFF] - Follow up in 3-5 days (Pain Management ) LAI GRAVES MD [ASSOCIATE] - Follow up in 3-5 days (orthopedics )
[2019-03-25] MEDS ORDERED: PREDNISONE 20 MG TABLET PO ONE (01:10)
[2019-03-25] MEDS ORDERED: METHOCARBAMOL 750 MG TABLET PO ONE (01:10)
[2019-03-25] MEDS ORDERED: MORPHINE SULFATE 10 MG/ML INJ IM ONE (01:10)
[2019-03-25] MEDS ORDERED: HYDROCODONE/ACETAMINOPHEN 5-325 MG (6 TAB/ER DISP) PO PRN (01:54)
[2019-03-25 01:57] VITALS: BP 118/80
== END 2019-03-25 02:03 | disposition home or self-care (01) ==
LOC: ER 23:48
DX: M54.5 Low back pain (principal); G89.29 Other chronic pain; R20.0 Anesthesia of skin; F17.200 Nicotine dependence, unspecified, uncomplicated
CPT/HCPCS: 99283; 96374; J3490; J2270; J7512